=== PATIENT | female | born 1950 | race Hispanic/Latino ===

== ENCOUNTER → 2018-10-23 | Outpatient (CLI) | payer OTHER | END | disposition home or self-care (01) | LOC: RAH 12:51 | PROVIDERS: ATTEND Family Medicine | DX: Z13.6 Encounter for screening for cardiovascular disorders (principal) | CPT/HCPCS: 75571 ==

== ENCOUNTER 2022-07-27 13:25 | Emergency (ER) | payer MEDICARE, OTHER ==
[~2022-07-27] VITALS: Ht 160 cm; Wt 112.5 kg
[2022-07-27] MEDS ORDERED: TRAM-355 PO (15:57)
[2022-07-27] MEDS ORDERED: ACETAMINOPHEN 500 MG TABLET PO ONE (16:00)
[2022-07-27 16:54] VITALS: BP 152/87
== END 2022-07-27 16:58 | disposition home or self-care (01) ==
LOC: EDH 13:25
DX: M25.561 Pain in right knee (principal); I10 Essential (primary) hypertension; E78.00 Pure hypercholesterolemia, unspecified; G89.29 Other chronic pain
CPT/HCPCS: 73562